=== PATIENT | female | born 1960 | race Caucasian/White ===

== ENCOUNTER 2019-06-13 07:47 | Day surgery (SDC) | payer BC ==
[~2019-06-13] VITALS: Ht 160 cm; Wt 65.9 kg
[2019-06-13 08:15] LABS: HEMATOCRIT 44.6 % (36.0-48.0); HEMOGLOBIN 15.1 g/dL (12-16); MCHC 33.9 g/dL (31.0-37.0); MCV 88.7 fL (80.0-100.0); MEAN PLATELET VOLUME 10.7 fL (7.4-10.4); RBC 5.03 10x6/uL (4.00-5.40); RDW 14.5 % (11.5-14.5); WBC 12.9 10x3/uL (4.8-10.8)
[2019-06-13 08:32] LABS: CALC OSMOLALITY 277 mosm/kg (275-300); CALCIUM 9.8 mg/dL (8.5-10.1); CARBON DIOXIDE 26.9 mmol/L (21.0-32.0); CHLORIDE - SERUM 104 mmol/L (98-107); CREATININE - SERUM 0.8 mg/dL (0.6-1.3); GLUCOSE 107 mg/dL (74-106); POTASSIUM - SERUM 3.8 mmol/L (3.5-5.1); SODIUM 140 mmol/L (136-145); UREA NITROGEN 10 mg/dL (7-18); eGFR NON AFRICAN AMERICAN 78 mL/min (90-120)
[2019-06-13] MEDS ORDERED: ALDACTONE25 MG PO (08:56)
[2019-06-13] MEDS ORDERED: COZAAR50 MG PO (08:57)
[2019-06-13] MEDS ORDERED: LIPITOR40 MG PO (08:57)
[2019-06-13] MEDS ORDERED: ANASTROZOLE 1MG TAB (08:57)
[2019-06-13] MEDS ORDERED: OMEPRAZOLE40 MG PO (08:58)
[2019-06-13 09:04] VITALS: BP 130/74; Ht 160 cm; Wt 65.9 kg
--- NOTE | 2019-06-13 12:16 | NUR ---
1216-10CC EPINEPHRINE 1MG USED ALONG WITH 10CC ELEVIEW TO PRE-TREAT POLYP
--- NOTE | 2019-06-13 14:06 | NUR ---
DC INSTRUCTIONS GIVEN TO PT. STATES UNDERSTANDING. DC'D IV CATH FULLY INTACT.
--- NOTE | 2019-06-13 14:27 | NUR ---
PT LEFT UNIT VIA WC AT 1441
--- NOTE | 2019-06-13 17:43 | OP ---
PATIENT NAME: BRUNO ESPINAL MEDICAL RECORD: [id number] :62 LOCATION:D.OPS ADMISSION DATE: SURGEON: MURPHY NICHOLE MD DATE OF OPERATION: 06/13/2019 PREOPERATIVE DIAGNOSIS: History of a very large polyp at 27 cm. POSTOPERATIVE DIAGNOSES: 1. History of a very large polyp at 27 cm. 2. A secondary 9 x 8 mm sessile polyp in the cecum. PROCEDURES: 1. Total colonoscopy to cecum. 2. EMR polypectomy, at 27 cms 3. Hot biopsy forceps polypectomy times 1. 4. Endoscopic tattooing with Concepcion ink. 5. Placement of 2 endoscopic clips for procedural hemostasis. SURGEON: Murphy Nichole MD EMERGENCY PREPAREDNESS COORDINATOR: None. BLOOD LOSS: Minimal. ANESTHESIA: General. COMPLICATIONS: None. The risks, possible complications and alternatives to the procedure were explained to the patient. She elects to proceed. The discussion specifically included, but was not limited to, bleeding requiring an emergency reoperation, infection, endoscopic perforation. OPERATIVE COURSE: The patient was conveyed to the endoscopy suite electively on 06/13/2019. IV sedation was induced by the anesthesia staff. The patient was placed in the Lawrence position. A digital rectal examination was performed. A colonoscope was inserted through the anus. It was easily advanced to the cecum. A cecal polyp was identified. This was removed in its entirety utilizing the hot biopsy forceps polypectomy technique. I slowly withdrew the endoscope. The combination of normal imaging as well as narrow band imaging were utilized. The pullback was greater than 25-minute pullback. I encountered the semi-pedunculated polyp at 27 cms. I advanced a sclerotherapy needle. I injected epinephrine at the base of the polyp within its stalk. I advanced the sclerotherapy needle again, I injected Eleview into the stalk to provide a lift of the polypoid mass from the underlying colonic wall. I then advanced an endoscopic snare. I performed a piecemeal snare polypectomy. The first portion of the polyp was about 90% of the polyp. This was grasped with an endoscopic retrieval net and was withdrawn out through the anus. I then readvanced the colonoscope. I was able to snare away the rest of the polyp utilizing the endoscopic snare. This was then suctioned up into the polyp trap. The base of the stalk was coagulated with the argon plasma scaler. Two endoscopic clips were deployed for post-procedural hemostasis. The endoscope was withdrawn into the rectum. A retroflexed view was obtained in the rectum. I then unretroflexed the scope and removed under direct vision. OPERATIVE REPORT [id number] BRUNO ESPINAL I will see the patient in my office in 2-3 weeks. My plan is for her next colonoscopy to take place in 1 year. TRANSINT:[id number] Voice Confirmation ID: [id number] DOCUMENT ID: [id number] MURPHY NICHOLE MD at 1743 CC: REMY MCNALLY MD, OSWALD HARDY MD and LUCIAN CHAMPAGNE [phone] DICTATION DATE: 06/13/19 1301 RETREAD MOLD OPERATOR: 06/13/19 1345 [facility] 06/13/19 [id number] [place] [address]
== END 2019-06-13 14:21 | disposition home or self-care (01) ==
LOC: D.OPS 07:47
PROVIDERS: Anesthesiology; ATTEND Surgery
DX: K63.5 Polyp of colon (principal); Z86.010 Personal history of colon polyps